=== PATIENT | male | born 1990 | race Caucasian/White ===

== ENCOUNTER 2021-04-22 18:39 | Emergency (ER) | payer MEDICAID ==
[2021-04-22 19:45] LABS: RED BLOOD COUNT 5.82 M/UL (4.20-5.50); WHITE BLOOD COUNT 9.3 K/UL (4.5-11.0)
[2021-04-22 20:12] LABS: BUN/CREATININE RATIO 36 (0-10)
== END 2021-04-22 21:12 | disposition left against medical advice (07) ==
LOC: ER1 18:39 → EDBD 18:39 → ER1 21:12
PROVIDERS: Student in an Organized Health Care Education/Training Program
DX: F10.10 Alcohol abuse, uncomplicated (principal); K70.10 Alcoholic hepatitis without ascites; F17.210 Nicotine dependence, cigarettes, uncomplicated; Z90.49 Acquired absence of other specified parts of digestive tract
CPT/HCPCS: 71045; 80053; 82550; 82553; 83605; 83690; 83874; 84484; 85025; 93005; 96374; 99283; J2405